=== PATIENT | female | born 1975 | race Caucasian/White ===

== ENCOUNTER 2016-11-17 05:17 | Emergency (ER) | payer MEDICARE, MEDICAID ==
[~2016-11-17] VITALS: Ht 172.7 cm; Wt 127.0 kg
--- OUTSIDE RECORDS SUMMARY | 2016-11-17 05:32 | External Medical Summary Rpt ---
Demographics Preferred Language Faroese Marital Status Unknown Gnosticism Affiliation Unknown Race Unknown Ethnic Group Unknown Author Author , Organization [employer] Address Unknown Phone Unavailable Purpose Continuity of Care Document - 03-23-2014 through 2016 Immunization Name Date Route CVX Reacti Commen Provid Is Given on t er Refuse d Influe Histor 051528 No nza, 2015 ical UF Inform ation - Source Unspec ified PPV23 Intram 33 Histor [id number] No 2015 uscula ical r Inform ation - Source Unspec ified Influe Intram Histor 72639 No nza 2014 uscula ical Quad r Inform W/Pres ation - Source Unspec ified Influe Intram 88 Histor STEFTT No nza, 2013 uscula ical HOMAS UF r Inform ation - Source Unspec ified
--- OUTSIDE RECORDS SUMMARY | 2016-11-17 05:32 | External Medical Summary Rpt ---
Demographics Preferred Language Uzbek Marital Status Unknown Episcopalian Affiliation Unknown Race Unknown Ethnic Group Unknown Author Author , Organization [employer] Address Unknown Phone Unavailable Purpose Continuity of Care Document - 03-23-2014 through 2016 Immunization Name Date Route CVX Reacti Commen Provid Is Given on t er Refuse d Influe Histor 773834 No nza, 2015 ical UF Inform ation - Source Unspec ified PPV23 Intram 33 Histor [id number] No 2015 uscula ical r Inform ation - Source Unspec ified Influe Intram Histor 69886 No nza 2014 uscula ical Quad r Inform W/Pres ation - Source Unspec ified Influe Intram 88 Histor STEFTT No nza, 2013 uscula ical HOMAS UF r Inform ation - Source Unspec ified
--- OUTSIDE RECORDS SUMMARY | 2016-11-17 05:33 | External Medical Summary Rpt ---
Author Author JIGNESH Macedo, [employer] Organization [employer] Address Unknown Phone Unavailable
--- NOTE | 2016-11-17 07:03 | Emergency Room Report ---
History of Present Illness Time Seen by MD [id number] Presenting Problem in Triage Pt arrived:Ambulance Stretcher Presenting Problem:SLIPPED IN WATER, FELL ONTO BACK. 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 N Clinical Suspician of Infection? N Mental Status: 1 - Regular (Normal Baseline) Sepsis Risk:Low Sepsis Risk Have you (or family members/close friends) recently traveled outside the [place]? N If Yes, where/when: Have you had exposure to infectious disease within the past month? N TB? Other? Specify: Comment The patient is brought in by ambulance from [facility]. She says that she slipped on a wet floor that had been mopped at about 5 AM. She says she landed on the small of her back. She complains of pain in the midline of her back at her belt line. She denies numbness or weakness. She denies any other injury including injury to head or neck. She says she did get up and walk a few minutes after she fell because she needed to go to the bathroom. ALLERGIES Coded Allergies: No Known Allergies (10/30/16) History Medical History General CAD? No Angina: No [place]: No Hypertension? Yes Hyperlipidemia? No CHF? No DVT? No PE? No COPD? Yes Asthma? No Anemia? No GERD? No Gastric ulcers? No GI Bleed? No Hernia? No Thyroid Problems? Yes Hypothyroidism? Yes CVA? No Seizures? No Diabetes? Yes Insulin Dependent: Yes Insulin Pump: No Home FSBS? Yes Renal Insuffiency? No End Stage Renal Disease? No UTI? No Stones? No BPH? No GB Disease: No Nephritic Syndrome? No Asplenia? No Hepatitis? No Sickle Cell Disease? No Arthritis? No Migraines? No Cataracts? No Glaucoma? No MRSA? No HIV? No TB? No Anxiety? No Depression? No Cancer? No More? 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 Eye Exam - bilateral eye normal exam, bilateral eye PERRL, bilateral eye EOMI Ear, Nose, Throat hearing grossly normal, normal ENT inspection Neck normal inspection, non-tender, supple, full range of motion Respiratory Status Yes: trachea midline, chest symmetrical, non tender chest. No: respiratory distress. Lung Sounds bilateral: normal breath sounds, lungs clear. Cardiovascular normal exam, regular rate/rhythm, no peripheral edema, no gallop, no JVD, no murmur, no rub, normal peripheral pulses Peripheral Pulses Pulses normal Yes Gastrointestinal normal bowel sounds, normal exam, non tender, soft, no organomegaly Back normal inspection, tenderness over the vertebral midline from the mid to upper lumbar spine. No deformity. 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 Normal pulses, cap refill, warmth, sensation, and movement. Mental status normal mood/affect Skin intact, normal color, warm/dry Medical Decision Making LABS/Meds/Orders Pt receiving controlled substance in ED? Yes Nitesh was queried for this patient? Yes Results/Orders Current Medication Orders Sig/Orestes Start time Last Medication Dose Route Stop Time Status Admin Acetaminophen 1,000 MG ONCE ONE 11/17 529 DC 11/17 PO 11/17 530 05 Acetaminophen 0 .STK-MED ONE 11/18 519 DC PO Orders Procedure Date/time Status CT LUMBAR SPINE W/O CONTRAST 11/[address] SCAN REQUEST 11/17 528 Active XRAY/CT/US XRAY/CT/US CT L-spine Comment CT scan interpreted by [facility] radiologist. Faxed report received and reviewed: L1 vertebral body superior and inferior endplate compression deformities of indeterminate age. Degenerative changes most prominent at L5-S1 where there are posterior projecting osteophytes and disc herniation resulting in thecal sac and neural foraminal narrowing. Departure Departure Disposition DC Home or Self Care(routine) Clinical Impression Primary Impression: Lumbar compression fracture Qualifiers: Encounter type: initial encounter Fracture type: closed Qualified Code: S32.000A - Wedge compression fracture of unspecified lumbar vertebra, initial encounter for closed fracture Secondary Impressions: Lumbar disc disease, Lumbar disc herniation Condition STABLE Referrals Karyn CACERES,Og Mejia this week Patient Instructions DI for Herniated Disc, DI for Vertebral Fracture Additional Instructions Additional instructions for BACK PAIN: See your physician as soon as possible for further evaluation. Return immediately if back pain becomes intolerable, or if fever, numbness or weakness of your legs, loss of control of your bowels or bladder. Prescriptions Current Visit Scripts HYDROCODONE/ACETAMINOPHEN ([place] 5-325 Tablet) 1 TAB PO Q6HP PRN pain #20 TAB ED Critical Care Critical Care No at 0631
--- NOTE | 2016-11-17 07:03 | Emergency Room Report ---
History of Present Illness Time Seen by MD [id number] Presenting Problem in Triage Pt arrived:Ambulance Stretcher Presenting Problem:SLIPPED IN WATER, FELL ONTO BACK. 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 N Clinical Suspician of Infection? N Mental Status: 1 - Regular (Normal Baseline) Sepsis Risk:Low Sepsis Risk Have you (or family members/close friends) recently traveled outside the [place]? N If Yes, where/when: Have you had exposure to infectious disease within the past month? N TB? Other? Specify: Comment The patient is brought in by ambulance from [place]. She says that she slipped on a wet floor that had been mopped at about 5 AM. She says she landed on the small of her back. She complains of pain in the midline of her back at her belt line. She denies numbness or weakness. She denies any other injury including injury to head or neck. She says she did get up and walk a few minutes after she fell because she needed to go to the bathroom. ALLERGIES Coded Allergies: No Known Allergies (10/30/16) History Medical History General CAD? No Angina: No [place]: No Hypertension? Yes Hyperlipidemia? No CHF? No DVT? No PE? No COPD? Yes Asthma? No Anemia? No GERD? No Gastric ulcers? No GI Bleed? No Hernia? No Thyroid Problems? Yes Hypothyroidism? Yes CVA? No Seizures? No Diabetes? Yes Insulin Dependent: Yes Insulin Pump: No Home FSBS? Yes Renal Insuffiency? No End Stage Renal Disease? No UTI? No Stones? No BPH? No GB Disease: No Nephritic Syndrome? No Asplenia? No Hepatitis? No Sickle Cell Disease? No Arthritis? No Migraines? No Cataracts? No Glaucoma? No MRSA? No HIV? No TB? No Anxiety? No Depression? No Cancer? No More? 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 Eye Exam - bilateral eye normal exam, bilateral eye PERRL, bilateral eye EOMI Ear, Nose, Throat hearing grossly normal, normal ENT inspection Neck normal inspection, non-tender, supple, full range of motion Respiratory Status Yes: trachea midline, chest symmetrical, non tender chest. No: respiratory distress. Lung Sounds bilateral: normal breath sounds, lungs clear. Cardiovascular normal exam, regular rate/rhythm, no peripheral edema, no gallop, no JVD, no murmur, no rub, normal peripheral pulses Peripheral Pulses Pulses normal Yes Gastrointestinal normal bowel sounds, normal exam, non tender, soft, no organomegaly Back normal inspection, tenderness over the vertebral midline from the mid to upper lumbar spine. No deformity. 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 Normal pulses, cap refill, warmth, sensation, and movement. Mental status normal mood/affect Skin intact, normal color, warm/dry Medical Decision Making LABS/Meds/Orders Pt receiving controlled substance in ED? Yes Nitesh was queried for this patient? Yes Results/Orders Current Medication Orders Sig/Orestes Start time Last Medication Dose Route Stop Time Status Admin Acetaminophen 1,000 MG ONCE ONE 11/17 529 DC 11/17 PO 11/17 530 05 Acetaminophen 0 .STK-MED ONE 11/18 519 DC PO Orders Procedure Date/time Status CT LUMBAR SPINE W/O CONTRAST 11/[address] SCAN REQUEST 11/17 528 Active XRAY/CT/US XRAY/CT/US CT L-spine Comment CT scan interpreted by [facility] radiologist. Faxed report received and reviewed: L1 vertebral body superior and inferior endplate compression deformities of indeterminate age. Degenerative changes most prominent at L5-S1 where there are posterior projecting osteophytes and disc herniation resulting in thecal sac and neural foraminal narrowing. Departure Departure Disposition DC Home or Self Care(routine) Clinical Impression Primary Impression: Lumbar compression fracture Qualifiers: Encounter type: initial encounter Fracture type: closed Qualified Code: S32.000A - Wedge compression fracture of unspecified lumbar vertebra, initial encounter for closed fracture Secondary Impressions: Lumbar disc disease, Lumbar disc herniation Condition STABLE Referrals Karyn CACERES,Og Mejia this week Patient Instructions DI for Herniated Disc, DI for Vertebral Fracture Additional Instructions Additional instructions for BACK PAIN: See your physician as soon as possible for further evaluation. Return immediately if back pain becomes intolerable, or if fever, numbness or weakness of your legs, loss of control of your bowels or bladder. Prescriptions Current Visit Scripts HYDROCODONE/ACETAMINOPHEN ([place] 5-325 Tablet) 1 TAB PO Q6HP PRN pain #20 TAB ED Critical Care Critical Care No at 2409
[2016-11-17] MEDS ORDERED: NORCO 325 MG-51 TAB PO (07:21)
[2016-11-17 08:07] VITALS: BP 97/62
--- NOTE | 2016-11-17 09:32 | RADIOLOGY REPORT PS360 ---
CT LUMBAR SPINE W/O CONTRAST COMPARISON: None HISTORY: Low back pain after recent fall TECHNIQUE: Multiple axial scans the lumbar spine were obtained. Sagittal and coronal reformats were evaluated as well. FINDINGS: There is some straightening of the normal curvature suggesting muscle spasm. There is a compression fracture of L1 age indeterminate but suspect that it likely is recent. There is no significant loss of height of the L1 vertebral body. There is no retropulsion. The disc spaces of previous well maintained except for disc space narrowing at L5-S1 where there is a prominent vacuum phenomenon noted. There is minimal anterior and posterior osteophytic spurring at L5-S1. There is no significant facet hypertrophy. The SI joints per normal. IMPRESSION: Compression fracture of L1 with defects of the superior and inferior endplate but without significant loss of height likely recent but suggest clinical correlation and without spinal canal compromise 2. Prominent degenerative disc disease L5-S1, I basically agree with the [facility] report
== END 2016-11-17 08:07 | disposition home or self-care (01) ==
LOC: ER 05:17
DX: M51.36 Other intervertebral disc degeneration, lumbar region (principal); W01.0XXA Fall on same level from slipping, tripping and stumbling without subsequent striking against object, initial encounter; Y92.198 Other place in other specified residential institution as the place of occurrence of the external cause; E66.01 Morbid (severe) obesity due to excess calories; Z68.41 Body mass index [BMI] 40.0-44.9, adult; Z72.0 Tobacco use; F20.9 Schizophrenia, unspecified

== ENCOUNTER 2017-03-06 06:59 | Emergency (ER) | payer MEDICARE, MEDICAID ==
[~2017-03-06 06:59] MED LIST: ACETAMINOPHEN325 M2 PO; ASPIRIN81 MG PO; ATORVASTATIN CA10 M1 PO; COMBIVENT RESPI1 SPR IH; FUROSEMIDE 40MG40 M1 PO; IBUPROFEN800 MG PO; IMODIUM 2MG. CAP2 MG PO; LEVEMIR FLEX100 U/ML SC; LEVOTHYROXINE0.05 M2 PO; LISINOPRIL40 MG PO; METFORMIN HCL1000 MG PO; NORCO 325 MG-51 TAB PO; PIOGLITAZONE HC30 M1 PO; RISPERIDONE4 MG PO; TAB-A-VITE1 TA1 PO; TRAZODONE50 MG PO; VENTOLIN H0.09 MG/AC IH
--- NOTE | 2017-03-06 07:30 | Emergency Room Report ---
Code Presentation/Treatment Time Seen by 0645 Initial Onset/Presentation This 41 year old, Female presented 03/06/17 @0647 to the EMERGENCY ROOM by AMBULANCE. Hx of arrest: FOUND PER HALF-WAY STAFF WITH NO RESP AND NO HEART RATE CPR was initiated by HALF-WAY STAFF/EMS. Presenting Rhythm:ASYSTOLE Defibrillated UNIT SECRETARY?N Attending physician(s):DR WILSON Anesthesia: Nursing:LAUREN HOLDER RT:TONY MEDRANO Pharmacy: Other: Code Treatment O2 Mask% Ambu in use? Y Intubated?N Time: Size: Route: By: Chest tube placed? N Left? Right? Size: Inserted by: Attached to suction? See Code Blue nursing documentation for defibrillation Pacemaker used? N Rhythm when applied: MA: Rate: Capture obtained? Source RN notes reviewed, EMS, detention records, old records Exam Limitations clinical condition Comment unwittnessed episode at ecf and asystolic and apnea per ems and asystolic and apnea with dependent ecchymosis Cardiac Chest Pain Chest pain indicative of cardiac No Timing/Duration this morning Severity severe ALLERGIES Coded Allergies: No Known Allergies (02/08/17) Home Medications Reported Medications Acetaminophen (Acetaminophen Tab) 325 MG PO Q4HP PRN PAIN #60 ALBUTEROL/IPRATROPIUM (Combivent Respimat Inhal [place]) 1 PUFF IH Q4HP PRN SOA #4 Ibuprofen (Ibuprofen 800MG) 800 MG PO Q8HP PRN PAIN Loperamide Hcl (Loperamide) 2 MG PO Q3HP PRN DIARRHEA Trazodone Hcl (Trazodone HCl) 50 MG PO QPM #30 ALBUTEROL (Ventolin Hfa) 2 PUFF IH Q4HP PRN SOA Aspirin 81 MG PO DAILY #30 Atorvastatin Calcium 10 MG PO QHS #30 Furosemide 80 MG PO DAILY #30 TAB Insulin Detemir (Levemir Flextouch) 10 SC QHS #15 Levothyroxine Sodium 0.05 MG PO DAILY #30 Lisinopril (Lisinopril 40MG) 40 MG PO DAILY #30 METFORMIN HCL (Metformin 1000MG) 1,000 MG PO BID #17 MULTIPLE VITAMIN (Tab-A-Chuck) 1 TAB PO DAILY #30 PIOGLITAZONE HCL (Pioglitazone HCl) 30 MG PO DAILY #30 Risperidone 4 MG PO BID #60 History Medical History General CAD? No Angina: No [place]: No Hypertension? Yes Hyperlipidemia? No CHF? No DVT? No PE? No COPD? Yes Asthma? No Anemia? No GERD? No Gastric ulcers? No GI Bleed? No Hernia? No Thyroid Problems? Yes Hypothyroidism? Yes CVA? No Seizures? No Diabetes? Yes Insulin Dependent: Yes Insulin Pump: No Home FSBS? Yes Renal Insuffiency? No End Stage Renal Disease? No UTI? No Stones? No BPH? No GB Disease: No Nephritic Syndrome? No Asplenia? No Hepatitis? No Sickle Cell Disease? No Arthritis? No Migraines? No Cataracts? No Glaucoma? No MRSA? No HIV? No TB? No Anxiety? No Depression? No Cancer? No More? Yes Additional hx: MORBID OBESITY, BORDERLINE PERSONALITY, SCHIZOAFFECTIVE D/O, BIPOLAR, D/O Immunization Hx DT/Tetanus Unknown Pneumonia Unknown Surgical Hx Previous Surgery?N Social History Smoking HX Packs/day < 1 Pack Alcohol Alcohol: No Drugs none Review of Systems All Other Systems Reviewed and Negative Comment unable to obtain sec to code blue Physical Exam Vital Signs Refer to Code Blue nursing documentation record for code vital signs. General Appearance severe distress Eye Exam Comment fixed dil Ear, Nose, Throat cyanosis Neck limited range of motion Respiratory Status Yes: respiratory distress. Lung Sounds anterior: decreased breath sounds. Cardiovascular pulseless Peripheral Pulses Pulses normal No Peripheral Pulses 0 carotid (R), 0 carotid (L), 0 radial (R), 0 radial (L), 0 femoral (R), 0 femoral (L), 0 dorsalis pedis (R), 0 dorsalis pedis (L) Gastrointestinal soft Extremities swelling Glascow Coma Scale Glascow Coma Scale Response Value EYE response: 1 NO RESPONSE 1 MOTOR response: 1 NO RESPONSE 1 VERBAL response: 1 NO RESPONSE 1 Total 3 Reflexes Reflexes normal No Skin cyanosis Departure Departure Time of Disposition 0650 Disposition Clinical Impression Primary Impression: Cardiac arrest due to respiratory disorder Condition STABLE ED Critical Care Critical Care No at 6091
--- NOTE | 2017-03-06 07:30 | Emergency Room Report ---
Code Presentation/Treatment Time Seen by 0645 Initial Onset/Presentation This 41 year old, Female presented 03/06/17 @0647 to the EMERGENCY ROOM by AMBULANCE. Hx of arrest: FOUND PER SENIOR CARE STAFF WITH NO RESP AND NO HEART RATE CPR was initiated by SENIOR CARE STAFF/EMS. 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 Y Intubated?N Time: Size: Route: By: Chest tube placed? N Left? Right? Size: Inserted by: Attached to suction? See Code Blue nursing documentation for defibrillation Pacemaker used? N Rhythm when applied: MA: Rate: Capture obtained? Source RN notes reviewed, EMS, intermediate records, old records Exam Limitations clinical condition Comment unwittnessed episode at ecf and asystolic and apnea per ems and asystolic and apnea with dependent ecchymosis Cardiac Chest Pain Chest pain indicative of cardiac No Timing/Duration this morning Severity severe ALLERGIES Coded Allergies: No Known Allergies (02/08/17) Home Medications Reported Medications Acetaminophen (Acetaminophen Tab) 325 MG PO Q4HP PRN PAIN #60 ALBUTEROL/IPRATROPIUM (Combivent Respimat Inhal [place]) 1 PUFF IH Q4HP PRN SOA #4 Ibuprofen (Ibuprofen 800MG) 800 MG PO Q8HP PRN PAIN Loperamide Hcl (Loperamide) 2 MG PO Q3HP PRN DIARRHEA Trazodone Hcl (Trazodone HCl) 50 MG PO QPM #30 ALBUTEROL (Ventolin Hfa) 2 PUFF IH Q4HP PRN SOA Aspirin 81 MG PO DAILY #30 Atorvastatin Calcium 10 MG PO QHS #30 Furosemide 80 MG PO DAILY #30 TAB Insulin Detemir (Levemir Flextouch) 10 SC QHS #15 Levothyroxine Sodium 0.05 MG PO DAILY #30 Lisinopril (Lisinopril 40MG) 40 MG PO DAILY #30 METFORMIN HCL (Metformin 1000MG) 1,000 MG PO BID #17 MULTIPLE VITAMIN (Tab-A-Chuck) 1 TAB PO DAILY #30 PIOGLITAZONE HCL (Pioglitazone HCl) 30 MG PO DAILY #30 Risperidone 4 MG PO BID #60 History Medical History General CAD? No Angina: No [place]: No Hypertension? Yes Hyperlipidemia? No CHF? No DVT? No PE? No COPD? Yes Asthma? No Anemia? No GERD? No Gastric ulcers? No GI Bleed? No Hernia? No Thyroid Problems? Yes Hypothyroidism? Yes CVA? No Seizures? No Diabetes? Yes Insulin Dependent: Yes Insulin Pump: No Home FSBS? Yes Renal Insuffiency? No End Stage Renal Disease? No UTI? No Stones? No BPH? No GB Disease: No Nephritic Syndrome? No Asplenia? No Hepatitis? No Sickle Cell Disease? No Arthritis? No Migraines? No Cataracts? No Glaucoma? No MRSA? No HIV? No TB? No Anxiety? No Depression? No Cancer? No More? Yes Additional hx: MORBID OBESITY, BORDERLINE PERSONALITY, SCHIZOAFFECTIVE D/O, BIPOLAR, D/O Immunization Hx DT/Tetanus Unknown Pneumonia Unknown Surgical Hx Previous Surgery?N Social History Smoking HX Packs/day < 1 Pack Alcohol Alcohol: No Drugs none Review of Systems All Other Systems Reviewed and Negative Comment unable to obtain sec to code blue Physical Exam Vital Signs Refer to Code Blue nursing documentation record for code vital signs. General Appearance severe distress Eye Exam Comment fixed dil Ear, Nose, Throat cyanosis Neck limited range of motion Respiratory Status Yes: respiratory distress. Lung Sounds anterior: decreased breath sounds. Cardiovascular pulseless Peripheral Pulses Pulses normal No Peripheral Pulses 0 carotid (R), 0 carotid (L), 0 radial (R), 0 radial (L), 0 femoral (R), 0 femoral (L), 0 dorsalis pedis (R), 0 dorsalis pedis (L) Gastrointestinal soft Extremities swelling Glascow Coma Scale Glascow Coma Scale Response Value EYE response: 1 NO RESPONSE 1 MOTOR response: 1 NO RESPONSE 1 VERBAL response: 1 NO RESPONSE 1 Total 3 Reflexes Reflexes normal No Skin cyanosis Departure Departure Time of Disposition 0650 Disposition Clinical Impression Primary Impression: Cardiac arrest due to respiratory disorder Condition STABLE ED Critical Care Critical Care No at 9450
== END 2017-03-06 09:48 | disposition expired ==
LOC: ER 06:59
DX: I46.9 Cardiac arrest, cause unspecified (principal); Z79.899 Other long term (current) drug therapy; I10 Essential (primary) hypertension; J44.9 Chronic obstructive pulmonary disease, unspecified; E11.9 Type 2 diabetes mellitus without complications; Z79.4 Long term (current) use of insulin; E03.9 Hypothyroidism, unspecified; E66.9 Obesity, unspecified; F20.9 Schizophrenia, unspecified